=== PATIENT | female | born 1985 | race Caucasian/White ===

== ENCOUNTER 2016-07-03 23:33 | Emergency (ER) | payer OTHER, SELFPAY ==
[2016-07-03] MEDS ORDERED: predniSONE 20 MG TAB As Ordered ONE (23:54)
[2016-07-03] MEDS ORDERED: ACETAMINOPHEN/CODEINE #3 TABLET (BULK) As Ordered ONE (23:54)
--- NOTE | 2016-07-04 00:07 | EDDOCDS ---
Nurse's Notes [facility] Name: Maria Eugenia Romeo Age: 31 yrs Sex: Female : 1985 Arrival Date: 07/03/2016 Time: 23:33 Bed Triage 2 Private MD: NO PRIMARY PHYSICIAN, . Diagnosis: Acute maxillary sinusitis;Cough Presentation: 07/03 23:37 Presenting complaint: Patient states: per pt sinus congestion & right ear pain since tm5 Friday, denies fevers. This patient has no additional risk factors. Adult Sepsis Screening: The patient does not have new or worsening altered mentation. Patient's respiratory rate is less than 22. Systolic blood pressure is greater than 100. Patient has a qSOFA score of 0- Negative Sepsis Screen. Suicide/Homicide risk assessment- the patient denies having any suicidal and/or homicidal ideations and does not present with any other emotional, behavioral or mental health complaints. 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 Transition of care: patient was not received from another setting of care. 23:37 Acuity: FABIO Level 4 tm5 23:37 Method Of Arrival: Walkin/Carried/Asstd tm5 Triage Assessment: 23:38 Headache History: This patient does not have a history of previous headaches. General: tm5 Appears in no apparent distress, Behavior is appropriate for age, cooperative. Pain: Location: right ear Pain currently is 4 out of 10 on a pain scale. Pain began 2-3 days ago Also complains of no other associated symptoms. Pt Declines HIV testing. Neurological: Level of Consciousness is awake, alert, Oriented to person, place, time. Respiratory: Airway is patent Respiratory effort is even, unlabored, Respiratory pattern is regular, symmetrical. Derm: Skin is pink, warm & dry. 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 none - PMHx: none; - PSHx: none; - Social history: Smoking status: Patient states was never smoker of tobacco. No barriers to communication noted, The patient speaks fluent Dutch. - Family history: Not pertinent. - : The pt / caregiver states he / she is not on anticoagulants. Home medication list is obtained from the patient. - Exposure Risk Screening:: None identified. Screenin:40 Screening information is obtained from the patient. Fall risk: No risks identified. tm5 Assistance ADL's: requires no assistance with activities of daily living. Abuse/DV Screen: The patient / caregiver reports he/she is: not in a situation that causes fear, pain or injury. Nutritional screening: No deficits noted. Advance Directives: Currently, there is no health care proxy. There is no active DNR order. home support is adequate. Assessment: 23:45 General: see triage assessment . Pain: Location: right ear. Neurological: Level of tm5 Consciousness is awake, alert, Oriented to person, place, time. Respiratory: Airway is patent Respiratory effort is even, unlabored, Respiratory pattern is regular, symmetrical, Breath sounds are clear bilaterally. Derm: Skin is pink, warm & dry. 07/04 00:00 Adult Sepsis Screening: The patient does not have new or worsening altered mentation. lf1 Patient's respiratory rate is less than 22. Systolic blood pressure is greater than 100. Patient has a qSOFA score of 0- Negative Sepsis Screen. General: Appears in no apparent distress. Pain:. 00:03 Pain: Location: right ear and headache Pain currently is 4 out of 10 on a pain scale. lf1 Neurological: Level of Consciousness is awake, alert, Oriented to person, place, time. EENT: Reports pain in right ear. Cardiovascular: No deficits noted. Respiratory: Reports cough that is. GI: Denies nausea, vomiting. : No deficits noted. Musculoskeletal: No deficits noted. Vital Signs: 07/03 23:35 BP 116 / 78; Pulse 89; Resp 18 S; Temp 97.3(O); Pulse Ox 100% on R/A; Weight 120.2 kg gr2 (R); Height 5 ft. 5 in. (165.10 cm) (R); Pain 5/10; 23:35 Body Mass Index 44.10 (120.20 kg, 165.10 cm) gr2 Vitals: 23:35 Log In Time: July 03, 2016 at 23:35. gr2 ED Course: 23:34 Patient visited by Albania Talbert. gr2 23:34 Patient moved to Waiting gr2 23:35 NO PRIMARY PHYSICIAN, . is Private Physician. gr2 23:35 [facility] cc10 23:35 Claire Mata MD is Attending Physician. cc10 23:36 Patient visited by Albania Talbert. gr2 23:36 Patient moved to Pre RCE gr2 23:38 Triage Initiated tm5 23:40 Patient moved to Triage 2 tm5 23:42 Patient visited by Bhavik Obrien PA-C. cc10 23:42 Patient visited by Bhavik Obrein PA-C. cc10 23:45 Patient visited by Mariam Clark RN. tm5 23:45 ED physician to see patient. tm5 23:45 The patient / caregiver is instructed regarding the plan of care and ED course. tm5 23:45 No IV's were initiated during this patient's visit. No procedures done that require tm5 assistance. 07/04 00:00 Patient visited by Bela Lopez RN. lf1 Administered Medications: 00:05 Drug: Acetaminophen-Codeine, 4 pack- 1 packets [acetaminophen 300 mg-codeine 30 mg nn1 tablet (1 tabs)] {Co-Signature: 1 (Bela Lopez RN).} Route: PO; 00:05 Drug: predniSONE 20 mg [prednisone 20 mg tablet (1 tabs)] Route: PO; lf1 Order Results: There are currently no results for this order. Outcome: 07/03 23:50 Discharge ordered by Provider. [facility] 07/04 00:06 Discharge Assessment: Patient awake, alert and oriented x 3. No cognitive and/or lf1 functional deficits noted. Patient verbalized understanding of disposition instructions. Patient awake and alert. Oriented to person, place and time. Patient verbalized understanding of disposition instructions. Patient has no functional deficits. patient administered narcotics - yes. Pt provided with safe discharge. The following High Risk Discharge criteria are identified: None. Discharged to home ambulatory. Condition: unchanged. Discharge instructions given to patient, Instructed on discharge instructions, follow up and referral plans. medication usage, no driving heavy equipment, Demonstrated understanding of instructions, medications, Pt was receptive of discharge instructions/ teaching. Prescriptions given X 3. Property :Personal belongings accompany Pt. 00:06 No special radiology studies were completed. lf1 00:07 Patient left the ED. lf1 Signatures: Bela Lopez RN RN lf1 Albania Talbert gr2 Bhavik Obrien PA-C PA-C [facility] Wallace Jean RN RN nn1 Mariam Clark,RN RN tm5 Bela Lopez RN lf1 MTDD
--- NOTE | 2016-07-04 00:08 | EDDOCDS ---
Physician Documentation [facility] Name: Maria Eugenia Romeo Age: 31 yrs Sex: Female : 1985 Arrival Date: 07/03/2016 Time: 23:33 Bed Triage 2 Private MD: NO PRIMARY PHYSICIAN, . Disposition: 07/03/16 23:50 Discharged to Home/Self Care. Impression: Acute maxillary sinusitis, Cough. - Condition is Stable. - Discharge Instructions: Sinusitis, Adult. - Prescriptions for Prednisone 20 mg Oral Tablet - take 1 tablet by ORAL route once daily for 5 days; 3 tablet. Fluticasone 50 mcg/actuation Nasal [place], Suspension - inhale 2 spray by INTRANASAL route once daily; 1 bottle. pseudoephedrine- DM-guaifenesin 30-15-200 mg/5 mL Oral solution - take 5 milliliter by ORAL route every 6 hours; 120 milliliter. - Medication Reconciliation form. - Follow up: Emergency Department; When: As needed; Reason: Worsening of conditions. Follow up: Private Physician; When: Call to arrange an appointment; Reason: Wound/Symptom Recheck, Recheck today's complaints, Worsening of conditions, Continuance of care. - Problem is an ongoing problem. - Symptoms are unchanged. Historical: - Allergies: no known allergies; - Home Meds: 1. none - PMHx: none; - PSHx: none; - Social history: Smoking status: Patient states was never smoker of tobacco. No barriers to communication noted, The patient speaks fluent Wolof. - Family history: Not pertinent. - : The pt / caregiver states he / she is not on anticoagulants. Home medication list is obtained from the patient. - Exposure Risk Screening:: None identified. 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 5 in. (165.10 cm) (R); Pain 5/10; 23:35 Body Mass Index 44.10 (120.20 kg, 165.10 cm) gr2 MDM: 23:49 Acetaminophen-Codeine, 4 pack- 300 mg-30 mg 1 packets PO once; Dispense with patient. cc10 Take per package instructions. ordered. 23:49 predniSONE 20 mg PO once; administer with food or milk ordered. cc10 07/04 00:02 Financial registration complete. hs2 Administered Medications: 00:05 Drug: Acetaminophen-Codeine, 4 pack- 1 packets [acetaminophen 300 mg-codeine 30 mg nn1 tablet (1 tabs)] {Co-Signature: lf1 (Bela Lopez RN).} Route: PO; 00:05 Drug: predniSONE 20 mg [prednisone 20 mg tablet (1 tabs)] Route: PO; lf1 Signatures: Bela LopezRN RN lf1 Bhavik Obrien, PAStephanie PA-C cc10 Mini Rankin, Reg Reg hs2 Mariam Clark,LINDA RN tm5 Wallace Jean RN nn1 Bela Lopez RN lf1 NEERAJD
--- NOTE | 2016-07-06 01:07 | EDDOCDS ---
Nurse's Notes [facility] Name: Maria Eugenia Romeo Age: 31 yrs Sex: Female : 1985 Arrival Date: 07/03/2016 Time: 23:33 Bed Triage 2 Private MD: NO PRIMARY PHYSICIAN, . Diagnosis: Acute maxillary sinusitis;Cough Presentation: 07/03 23:37 Presenting complaint: Patient states: per pt sinus congestion & right ear pain since tm5 Friday, denies fevers. This patient has no additional risk factors. Adult Sepsis Screening: The patient does not have new or worsening altered mentation. Patient's respiratory rate is less than 22. Systolic blood pressure is greater than 100. Patient has a qSOFA score of 0- Negative Sepsis Screen. Suicide/Homicide risk assessment- the patient denies having any suicidal and/or homicidal ideations and does not present with any other emotional, behavioral or mental health complaints. 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 Transition of care: patient was not received from another setting of care. 23:37 Acuity: FABIO Level 4 tm5 23:37 Method Of Arrival: Walkin/Carried/Asstd tm5 Triage Assessment: 23:38 Headache History: This patient does not have a history of previous headaches. General: tm5 Appears in no apparent distress, Behavior is appropriate for age, cooperative. Pain: Location: right ear Pain currently is 4 out of 10 on a pain scale. Pain began 2-3 days ago Also complains of no other associated symptoms. Pt Declines HIV testing. Neurological: Level of Consciousness is awake, alert, Oriented to person, place, time. Respiratory: Airway is patent Respiratory effort is even, unlabored, Respiratory pattern is regular, symmetrical. Derm: Skin is pink, warm & dry. 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 none - PMHx: none; - PSHx: none; - Social history: Smoking status: Patient states was never smoker of tobacco. No barriers to communication noted, The patient speaks fluent Colombian. - Family history: Not pertinent. - : The pt / caregiver states he / she is not on anticoagulants. Home medication list is obtained from the patient. - Exposure Risk Screening:: None identified. Screenin:40 Screening information is obtained from the patient. Fall risk: No risks identified. tm5 Assistance ADL's: requires no assistance with activities of daily living. Abuse/DV Screen: The patient / caregiver reports he/she is: not in a situation that causes fear, pain or injury. Nutritional screening: No deficits noted. Advance Directives: Currently, there is no health care proxy. There is no active DNR order. home support is adequate. Assessment: 23:45 General: see triage assessment . Pain: Location: right ear. Neurological: Level of tm5 Consciousness is awake, alert, Oriented to person, place, time. Respiratory: Airway is patent Respiratory effort is even, unlabored, Respiratory pattern is regular, symmetrical, Breath sounds are clear bilaterally. Derm: Skin is pink, warm & dry. 07/04 00:00 Adult Sepsis Screening: The patient does not have new or worsening altered mentation. lf1 Patient's respiratory rate is less than 22. Systolic blood pressure is greater than 100. Patient has a qSOFA score of 0- Negative Sepsis Screen. General: Appears in no apparent distress. Pain:. 00:03 Pain: Location: right ear and headache Pain currently is 4 out of 10 on a pain scale. lf1 Neurological: Level of Consciousness is awake, alert, Oriented to person, place, time. EENT: Reports pain in right ear. Cardiovascular: No deficits noted. Respiratory: Reports cough that is. GI: Denies nausea, vomiting. : No deficits noted. Musculoskeletal: No deficits noted. Vital Signs: 07/03 23:35 BP 116 / 78; Pulse 89; Resp 18 S; Temp 97.3(O); Pulse Ox 100% on R/A; Weight 120.2 kg gr2 (R); Height 5 ft. 5 in. (165.10 cm) (R); Pain 5/10; 23:35 Body Mass Index 44.10 (120.20 kg, 165.10 cm) gr2 Vitals: 23:35 Log In Time: July 03, 2016 at 23:35. gr2 ED Course: 23:34 Patient visited by Albania Talbert. gr2 23:34 Patient moved to Waiting gr2 23:35 NO PRIMARY PHYSICIAN, . is Private Physician. gr2 23:35 Bhavik Obrien [facility]-C [facility]. cc10 23:35 Claire Mata MD is Attending Physician. cc10 23:36 Patient visited by Albania Talbert. gr2 23:36 Patient moved to Pre RCE gr2 23:38 Triage Initiated tm5 23:40 Patient moved to Triage 2 tm5 23:42 Patient visited by Bhavik Obrien PA-C. cc10 23:42 Patient visited by Bhavik Obrien PA-C. cc10 23:45 Patient visited by Mariam Clark RN. tm5 23:45 ED physician to see patient. tm5 23:45 The patient / caregiver is instructed regarding the plan of care and ED course. tm5 23:45 No IV's were initiated during this patient's visit. No procedures done that require tm5 assistance. 07/04 00:00 Patient visited by Bela Lopez RN. lf1 00:42 Patient name changed from Maria Eugenia\S\\S\Day\S\ to Maria Eugenia\S\ \S\Day. EDMS 00:42 [facility] Payment Agreement was scanned into [employer] and attached to record. hs2 17:59 T-Sheet-- Draft Copy was scanned into [employer] and attached to record. klr Administered Medications: 00:05 Drug: Acetaminophen-Codeine, 4 pack- 1 packets [acetaminophen 300 mg-codeine 30 mg nn1 tablet (1 tabs)] {Co-Signature: lf1 (Bela Lopez RN).} Route: PO; 00:05 Drug: predniSONE 20 mg [prednisone 20 mg tablet (1 tabs)] Route: PO; lf1 Order Results: There are currently no results for this order. Outcome: 07/03 23:50 Discharge ordered by Provider. cc10 07/04 00:06 Discharge Assessment: Patient awake, alert and oriented x 3. No cognitive and/or lf1 functional deficits noted. Patient verbalized understanding of disposition instructions. Patient awake and alert. Oriented to person, place and time. Patient verbalized understanding of disposition instructions. Patient has no functional deficits. patient administered narcotics - yes. Pt provided with safe discharge. The following High Risk Discharge criteria are identified: None. Discharged to home ambulatory. Condition: unchanged. Discharge instructions given to patient, Instructed on discharge instructions, follow up and referral plans. medication usage, no driving heavy equipment, Demonstrated understanding of instructions, medications, Pt was receptive of discharge instructions/ teaching. Prescriptions given X 3. Property :Personal belongings accompany Pt. 00:06 No special radiology studies were completed. lf1 00:07 Patient left the ED. lf1 Signatures: Dispatcher [employer] EDMS Bela Lopez RN RN lf1 Albania Talbert gr2 Bhavik Obrien PA-C PA-C cc10 Wallace Jean RN RN nn1 Mini Rankin, Reg Reg hs2 Nilsa Danielle Tonya, RN RN tm5 Bela Lopez RN lf1 Chart Complete MTDD
--- NOTE | 2016-07-06 01:07 | EDDOCDS ---
Physician Documentation [facility] Name: Maria Eugenia Romeo Age: 31 yrs Sex: Female : 1985 Arrival Date: 07/03/2016 Time: 23:33 Bed Triage 2 Private MD: NO PRIMARY PHYSICIAN, . Disposition: 07/03/16 23:50 Discharged to Home/Self Care. Impression: Acute maxillary sinusitis, Cough. - Condition is Stable. - Discharge Instructions: Sinusitis, Adult. - Prescriptions for Prednisone 20 mg Oral Tablet - take 1 tablet by ORAL route once daily for 5 days; 3 tablet. Fluticasone 50 mcg/actuation Nasal [place], Suspension - inhale 2 spray by INTRANASAL route once daily; 1 bottle. pseudoephedrine- DM-guaifenesin 30-15-200 mg/5 mL Oral solution - take 5 milliliter by ORAL route every 6 hours; 120 milliliter. - Medication Reconciliation form. - Follow up: Emergency Department; When: As needed; Reason: Worsening of conditions. Follow up: Private Physician; When: Call to arrange an appointment; Reason: Wound/Symptom Recheck, Recheck today's complaints, Worsening of conditions, Continuance of care. - Problem is an ongoing problem. - Symptoms are unchanged. Historical: - Allergies: no known allergies; - Home Meds: 1. none - PMHx: none; - PSHx: none; - Social history: Smoking status: Patient states was never smoker of tobacco. No barriers to communication noted, The patient speaks fluent Thai. - Family history: Not pertinent. - : The pt / caregiver states he / she is not on anticoagulants. Home medication list is obtained from the patient. - Exposure Risk Screening:: None identified. 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 5 in. (165.10 cm) (R); Pain 5/10; 23:35 Body Mass Index 44.10 (120.20 kg, 165.10 cm) gr2 MDM: 23:49 Acetaminophen-Codeine, 4 pack- 300 mg-30 mg 1 packets PO once; Dispense with patient. cc10 Take per package instructions. ordered. 23:49 predniSONE 20 mg PO once; administer with food or milk ordered. cc10 07/04 00:02 Financial registration complete. hs2 00:42 [facility] Payment Agreement was scanned into [employer] and attached to record. hs2 17:59 T-Sheet-- Draft Copy was scanned into [employer] and attached to record. klr Administered Medications: 00:05 Drug: Acetaminophen-Codeine, 4 pack- 1 packets [acetaminophen 300 mg-codeine 30 mg nn1 tablet (1 tabs)] {Co-Signature: lf1 (Bela Lopez RN).} Route: PO; 00:05 Drug: predniSONE 20 mg [prednisone 20 mg tablet (1 tabs)] Route: PO; lf1 Signatures: Bela Lopez,RN RN lf1 Bhavik Obrien PA-C PAStephanie cc10 Mini Rankin, Reg Reg hs2 Nilsa Danielle klr Mariam ClarkRN RN tm5 Wallace Jean RN nn1 Bela Lopez RN lf1 The chart was reviewed and I authenticate all verbal orders and agree with the evaluation and treatment provided.Attachments: 00:42 [facility] Payment Agreement hs2 17:59 T-Sheet-- Draft Copy klr Chart Complete MTDD
--- NOTE | 2016-07-06 01:07 | EDDOCDS ---
Physician Documentation [facility] Name: Maria Eugenia Romeo Age: 31 yrs Sex: Female : 1985 Arrival Date: 07/03/2016 Time: 23:33 Bed Triage 2 Private MD: NO PRIMARY PHYSICIAN, . Disposition: 07/03/16 23:50 Discharged to Home/Self Care. Impression: Acute maxillary sinusitis, Cough. - Condition is Stable. - Discharge Instructions: Sinusitis, Adult. - Prescriptions for Prednisone 20 mg Oral Tablet - take 1 tablet by ORAL route once daily for 5 days; 3 tablet. Fluticasone 50 mcg/actuation Nasal [place], Suspension - inhale 2 spray by INTRANASAL route once daily; 1 bottle. pseudoephedrine- DM-guaifenesin 30-15-200 mg/5 mL Oral solution - take 5 milliliter by ORAL route every 6 hours; 120 milliliter. - Medication Reconciliation form. - Follow up: Emergency Department; When: As needed; Reason: Worsening of conditions. Follow up: Private Physician; When: Call to arrange an appointment; Reason: Wound/Symptom Recheck, Recheck today's complaints, Worsening of conditions, Continuance of care. - Problem is an ongoing problem. - Symptoms are unchanged. Historical: - Allergies: no known allergies; - Home Meds: 1. none - PMHx: none; - PSHx: none; - Social history: Smoking status: Patient states was never smoker of tobacco. No barriers to communication noted, The patient speaks fluent Arabic. - Family history: Not pertinent. - : The pt / caregiver states he / she is not on anticoagulants. Home medication list is obtained from the patient. - Exposure Risk Screening:: None identified. 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 5 in. (165.10 cm) (R); Pain 5/10; 23:35 Body Mass Index 44.10 (120.20 kg, 165.10 cm) gr2 MDM: 23:49 Acetaminophen-Codeine, 4 pack- 300 mg-30 mg 1 packets PO once; Dispense with patient. cc10 Take per package instructions. ordered. 23:49 predniSONE 20 mg PO once; administer with food or milk ordered. cc10 07/04 00:02 Financial registration complete. hs2 00:42 [facility] Payment Agreement was scanned into [employer] and attached to record. hs2 17:59 T-Sheet-- Draft Copy was scanned into [employer] and attached to record. klr Administered Medications: 00:05 Drug: Acetaminophen-Codeine, 4 pack- 1 packets [acetaminophen 300 mg-codeine 30 mg nn1 tablet (1 tabs)] {Co-Signature: lf1 (Bela Lopez RN).} Route: PO; 00:05 Drug: predniSONE 20 mg [prednisone 20 mg tablet (1 tabs)] Route: PO; lf1 Signatures: Bela Lopez,RN RN lf1 Bhavik Obrien PA-C PAStephanie cc10 Mini Rankin, Reg Reg hs2 Nilsa Danielle klr Mariam ClarkRN RN tm5 Wallace Jean RN nn1 Bela Lopez RN lf1 The chart was reviewed and I authenticate all verbal orders and agree with the evaluation and treatment provided.Attachments: 00:42 [facility] Payment Agreement hs2 17:59 T-Sheet-- Draft Copy klr Chart Complete MTDD
== END 2016-07-04 00:07 | disposition home or self-care (01) ==
LOC: M ED 23:33
DX: J01.90 Acute sinusitis, unspecified (principal); R05 Cough

== ENCOUNTER → 2023-10-22 | Outpatient (REF) | payer SELFPAY, BC | LOC: M LAB REF 16:10 | PROVIDERS: ATTEND Physician Assistant | DX: J02.9 Acute pharyngitis, unspecified (principal) ==